=== PATIENT | female | born 1970 | race Caucasian/White ===

== ENCOUNTER 2017-09-10 09:19 | Day surgery (SDC) | payer BC ==
[~2017-09-10] VITALS: Ht 162.6 cm; Wt 65.5 kg
[~2017-09-10 09:19] MED LIST: META800; TIZANIDINE HCL2 MG
[2017-09-10] MEDS ORDERED: PROG100 (09:42)
== END 2017-09-10 11:47 | disposition home or self-care (01) ==
LOC: ORSCSDS 09:19
PROVIDERS: Surgery
PROC: 0DJD8ZZ Inspection of Lower Intestinal Tract, Via Natural or Artificial Opening Endoscopic (ICD-10-PCS; principal; 2017-09-10 10:30)
DX: Z12.11 Encounter for screening for malignant neoplasm of colon (principal); Z80.0 Family history of malignant neoplasm of digestive organs; E03.9 Hypothyroidism, unspecified; Z79.899 Other long term (current) drug therapy
CPT/HCPCS: J7120